=== PATIENT | female | born 2000 | race Two or more races ===

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

== ENCOUNTER 2021-06-16 09:30 | Emergency (ER) | payer MEDICAID ==
[~2021-06-16] VITALS: Ht 147.3 cm; Wt 59.0 kg
--- NOTE | 2021-06-16 09:47 | NUR ---
BIBS FOR UPPER/MID ABDOMINAL PAIN, WITH NAUSEA AND VOMITING x 4 DAYS. TO ER BED 1, HOOEKD TO MONITOR, CHANGED TO HOSP GOWN, WARM BLANKET PROVIDED, PATIENT AAO x 4. BREATHING EVENA DN UNLABORED. AWAITING MD JAEGER
--- NOTE | 2021-06-16 09:51 | NUR ---
DR RAMOS AT BEDSIDE
[2021-06-16] MEDS ORDERED: PANTOPRAZOLE 40 MG VIAL IV ONE (10:00)
[2021-06-16] MEDS ORDERED: IV NS 0.9% 1,000 ML BAG IV ONE (10:00)
[2021-06-16] MEDS ORDERED: MAG HYDROX/AL HYDROX/SIMETH 30 ML UDC PO ONE (10:00)
[2021-06-16] MEDS ORDERED: ONDANSETRON HCL/PF 4 MG/2 ML VIAL IVP ONE (10:00)
[2021-06-16] MEDS ORDERED: LIDOCAINE VISCOUS 2% UD 15 ML UDC MM ONE (10:00)
[2021-06-16] MEDS ORDERED: MORPHINE SULFATE INJ 2 MG/ML DISP.SYRIN IV ONE (10:00)
[2021-06-16] MEDS ORDERED: ONDANSETRON HCL/PF 4 MG/2 ML VIAL ONE (10:05)
[2021-06-16] MEDS ORDERED: MAG HYDROX/AL HYDROX/SIMETH 30 ML UDC ONE (10:05)
[2021-06-16] MEDS ORDERED: LIDOCAINE VISCOUS 2% UD 15 ML UDC ONE (10:05)
[2021-06-16] MEDS ORDERED: PANTOPRAZOLE 40 MG VIAL ONE (10:05)
[2021-06-16] MEDS ORDERED: MORPHINE SULFATE INJ 4 MG/ML DISP.SYRIN ONE (10:06)
[2021-06-16 10:16] LABS: BASOPHILS % (AUTO) 0.4 % (0.0-2.0); EOSINOPHILS % (AUTO) 0.9 % (0.0-6.0); HEMATOCRIT 43 % (33-45); HEMOGLOBIN 14.4 g/dL (11.5-14.8); LYMPHOCYTES % (AUTO) 18.2 % (20.0-44.0); MEAN CORPUSCULAR HGB CONC 34 g/dl (31.0-36.0); MEAN CORPUSCULAR VOLUME 90 fL (82-100); MONOCYTES % (AUTO) 8.9 % (2.0-12.0); NEUTROPHILS # (AUTO) 7.7 K/uL (1.8-8.9); NEUTROPHILS % (AUTO) 71.6 % (43.0-81.0); PLATELET COUNT (AUTO) 494 K/uL (150-450); RED BLOOD CELL COUNT(AUTO) 4.75 MIL/uL (4.0-5.2); WHITE BLOOD COUNT (AUTO) 10.8 K/uL (4.3-11.0)
--- NOTE | 2021-06-16 10:18 | NUR ---
PATIENT NOT ABLE TO PROVIDE URINE SAMPLE AT THIS TIME.
--- NOTE | 2021-06-16 10:52 | NUR ---
PATIENT STILL NOT ABLE TO PROVIDE URINE SAMPLE
[2021-06-16 10:58] LABS: CALCIUM, SERUM 9.7 mg/dL (8.5-10.1); CREATININE 0.8 mg/dL (0.6-1.3)
[2021-06-16] MEDS ORDERED: HYDROMORPHONE 1 MG/1 ML DISP.SYRIN IV ONE ×2 (11:00→13:00)
[2021-06-16] MEDS ORDERED: HYDROMORPHONE 1 MG/1 ML DISP.SYRIN ONE ×2 (11:03→12:58)
[2021-06-16 11:04] LABS: ALBUMIN 4.9 g/dL (3.4-5.0); BILIRUBIN,DIRECT 0.1 mg/dL (0.0-0.2); BILIRUBIN,TOTAL 0.7 mg/dL (0.2-1.0); TOTAL PROTEIN, SERUM 9.2 g/dL (6.4-8.2)
--- NOTE | 2021-06-16 12:02 | NUR ---
URINE SAMPLE COLLECTED AND SENT TO LAB
[2021-06-16] MEDS ORDERED: OXYC-128 PO (12:46)
[2021-06-16] MEDS ORDERED: FAMO40TA7 PO (12:46)
[2021-06-16] MEDS ORDERED: DICY10CA37 PO (12:46)
--- NOTE | 2021-06-16 13:28 | NUR ---
IV removed. Catheter intact and site benign. Pressure and 4x4 applied to site. No bleeding noted.Patient discharged to home in stable condition. Written and verbal after care instructions given. Patient verbalizes understanding of instruction.
[2021-06-16 13:42] VITALS: BP 132/85
[2021-06-17] MEDS ORDERED: ONDA4TAB5 PO (04:05)
[2021-06-17] MEDS ORDERED: METO-295 PO (04:07)
[2021-06-17] MEDS ORDERED: PANT40TA2 PO (04:08)
== END 2021-06-16 13:38 | disposition home or self-care (01) ==
LOC: ER 09:37
DX: R10.13 Epigastric pain (principal)
CPT/HCPCS: 36415; 80048; 80076; 83690; 84703; 85025; 96361; 96374; 96375; 96376; 99284; C9113; J1170 ×2; J2270; J2405; J7030

== ENCOUNTER 2021-06-16 22:29 | Emergency (ER) | payer MEDICAID ==
[~2021-06-16] VITALS: Ht 147.3 cm; Wt 57.2 kg
[~2021-06-16 22:29] MED LIST: DICY10CA37 PO; FAMO40TA7 PO; OXYC-128 PO
--- NOTE | 2021-06-16 22:53 | NUR ---
BIBSELF C/O EPIGASTRIC WITH N/V ALL DAY S/P D/C FROM ER WITH SIMILIAR COMPLAINT IN THE AM. PT STATES 8/10 EPIGASTRIC PAIN WELL NASUEA. PT BREATHING EVEN AND UNLABORED CHANGED INTO GOWN AND PLACED ON THE MONITOR AND ALL V/S STABLE. PROVIDED WITH WARM BLANKET AND CALL LIGHT WITHIN REACH.
[2021-06-16] MEDS ORDERED: IV NS 0.9% 1,000 ML BAG IV ONE (23:00)
[2021-06-16] MEDS ORDERED: LIDOCAINE VISCOUS 2% UD 15 ML UDC MM ONE (23:00)
[2021-06-16] MEDS ORDERED: MORPHINE SULFATE INJ 2 MG/ML DISP.SYRIN IV ONE (23:00)
[2021-06-16] MEDS ORDERED: MAG HYDROX/AL HYDROX/SIMETH 30 ML UDC PO ONE (23:00)
[2021-06-16] MEDS ORDERED: ONDANSETRON HCL/PF 4 MG/2 ML VIAL IV ONE (23:00)
[2021-06-16] MEDS ORDERED: MAG HYDROX/AL HYDROX/SIMETH 30 ML UDC ONE (23:19)
[2021-06-16] MEDS ORDERED: LIDOCAINE VISCOUS 2% UD 15 ML UDC ONE (23:19)
[2021-06-16] MEDS ORDERED: PANTOPRAZOLE 40 MG VIAL ONE (23:19)
[2021-06-16] MEDS ORDERED: ONDANSETRON HCL/PF 4 MG/2 ML VIAL ONE (23:19)
[2021-06-16] MEDS ORDERED: MORPHINE SULFATE INJ 4 MG/ML DISP.SYRIN ONE (23:20)
--- NOTE | 2021-06-16 23:24 | NUR ---
ULTRASOUND AT BEDSIDE.
[2021-06-16] MEDS ORDERED: PANTOPRAZOLE 40 MG VIAL IV ONE (23:30)
--- NOTE | 2021-06-16 23:30 | NUR ---
20G IV LINE INITIATED IN LAC PATENT AND INTACT. BLOOD DRAWN AND SENT TO LAB.
[2021-06-16] MEDS ORDERED: IV NS 0.9% 500 ML IV ONE (23:48)
[2021-06-16] MEDS ORDERED: CT SWABBABLE VALVE TRANS SET 1 EA INFUS.SET MC ONE (23:48)
[2021-06-16] MEDS ORDERED: IOHEXOL-300 100 ML VIAL IV ONE (23:48)
[2021-06-17] LABS: BASOPHILS % (AUTO) 0.4 % (0.0-2.0); EOSINOPHILS % (AUTO) 0.1 % (0.0-6.0); HEMATOCRIT 42 % (33-45); LYMPHOCYTES # (AUTO) 1.6 K/uL (0.8-4.8); LYMPHOCYTES % (AUTO) 14.7 % (20.0-44.0); MEAN CORPUSCULAR HGB CONC 33 g/dl (31.0-36.0); MEAN CORPUSCULAR VOLUME 91 fL (82-100); MONOCYTES % (AUTO) 8.8 % (2.0-12.0); NEUTROPHILS # (AUTO) 8.4 K/uL (1.8-8.9); PLATELET COUNT (AUTO) 463 K/uL (150-450); RED BLOOD CELL COUNT(AUTO) 4.68 MIL/uL (4.0-5.2); WHITE BLOOD COUNT (AUTO) 11.1 K/uL (4.3-11.0)
[2021-06-17] MEDS ORDERED: ONDANSETRON HCL/PF 4 MG/2 ML VIAL ONE (00:08)
[2021-06-17] MEDS ORDERED: MORPHINE SULFATE INJ 4 MG/ML DISP.SYRIN ONE ×2 (00:09→00:56)
--- NOTE | 2021-06-17 00:16 | NUR ---
PT BEING TRANSPORTED TO [facility] VIA [facility]
[2021-06-17 00:19] LABS: CALCIUM, SERUM 8.9 mg/dL (8.5-10.1); CREATININE 0.8 mg/dL (0.6-1.3); POTASSIUM 2.9 mmol/L (3.5-5.1)
[2021-06-17 00:25] LABS: BILIRUBIN,DIRECT 0.2 mg/dL (0.0-0.2); BILIRUBIN,TOTAL 0.8 mg/dL (0.2-1.0); TOTAL PROTEIN, SERUM 9.2 g/dL (6.4-8.2)
[2021-06-17] MEDS ORDERED: MORPHINE SULFATE INJ 2 MG/ML DISP.SYRIN IV ONE ×2 (00:30→01:00)
[2021-06-17] MEDS ORDERED: ONDANSETRON HCL/PF - ER 4 MG/2 ML VIAL IV ONE (00:30)
[2021-06-17] MEDS ORDERED: METOCLOPRAMIDE HCL 10 MG/2 ML VIAL ONE (00:57)
[2021-06-17] MEDS ORDERED: METOCLOPRAMIDE HCL 10 MG/2 ML VIAL IV ONE (01:00)
--- NOTE | 2021-06-17 02:25 | NUR ---
SPOKE WITH LEIGHA MELGOZA SHEEP KILLER FOR CLINICAL INFORMATION. WILL CALL BACK FOR TRANSFER
--- NOTE | 2021-06-17 02:34 | NUR ---
Travis meeks in [facility] - 06/17/21 at 0324 by PRECIOUS LEIGHA MELGOZA FAN RUNNER - [phone]
--- NOTE | 2021-06-17 02:34 | NUR ---
RHONA, LEIGHA CONCRETE SMOOTHER - [phone]
--- NOTE | 2021-06-17 02:34 | NUR ---
FAX COVID RESULT TO [phone]
[2021-06-17] MEDS ORDERED: HALOPERIDOL LACTATE INJ 5 MG/ML VIAL ONE (02:36)
--- NOTE | 2021-06-17 02:40 | NUR ---
DR. OLIVAS SPOKE WITH DR. SOLITARIO. PT IS GOING TO [facility]. WILL CALL BACK FOR ROOM ASSIGNMENT
[2021-06-17] MEDS ORDERED: HALOPERIDOL LACTATE INJ 5 MG/ML VIAL IM ONE (03:00)
[2021-06-17] MEDS ORDERED: ONDA4TAB5 PO (04:05)
[2021-06-17] MEDS ORDERED: METO-295 PO (04:07)
[2021-06-17] MEDS ORDERED: PANT40TA2 PO (04:08)
--- NOTE | 2021-06-17 04:56 | NUR ---
Patient does not wish to proceed with medical care recommended by Dr. Alfred. Patient given information related to possible complications, up to and including , which could occur as a result of leaving the hospital at this time. Patient verbalizes understanding of risks involved due to leaving against medical advice. Patient has signed AMA form. IV line discontinued and patient ambulated without difficulty and was picked up by family.
[2021-06-17 04:58] VITALS: BP 117/62
== END 2021-06-17 04:59 | disposition left against medical advice (07) ==
LOC: ER 22:32
DX: R10.13 Epigastric pain (principal); E87.6 Hypokalemia; E87.8 Other disorders of electrolyte and fluid balance, not elsewhere classified; Z20.822 Contact with and (suspected) exposure to COVID-19; Z53.29 Procedure and treatment not carried out because of patient's decision for other reasons
CPT/HCPCS: 36415; 74177; 76705; 80048; 80076; 83690; 85025; 87426; 96361; 96374; 96375 ×2; 96376; 99285; C9113; C9803; J1630; J2270 ×3; J2405 ×2; J2765; J7030; J7050; Q9967

== ENCOUNTER 2021-06-18 09:54 | Emergency (ER) | payer MEDICAID ==
[~2021-06-18] VITALS: Ht 147.3 cm; Wt 75.3 kg
[~2021-06-18 09:54] MED LIST changes: +METO-295 PO; +ONDA4TAB5 PO; +PANT40TA2 PO
--- NOTE | 2021-06-18 09:54 | NUR ---
PT BIB SELF C/O ABDOMINAL PAIN AND VOMITING FOR 4 DAYS. PT IS AAOX4, NOT IN RESPIRATORY DISTRESS, V/S STABLE, KEPT RESTED AND COMFORTABLE. WILL CONTINUE TO MONITOR.
--- NOTE | 2021-06-18 09:56 | NUR ---
TO ER BED 12, BIB SELF C/O ABDOMINAL PAIN AND VOMITING FOR 4 DAYS. AAOX4, HX OF GASTRITIS.
[2021-06-18] MEDS ORDERED: ONDANSETRON HCL/PF 4 MG/2 ML VIAL IVP ONE (10:30)
[2021-06-18] MEDS ORDERED: IV NS 0.9% 1,000 ML BAG IV ONE (10:30)
[2021-06-18] MEDS ORDERED: HALOPERIDOL LACTATE INJ 5 MG/ML VIAL IM ONE (10:30)
[2021-06-18] MEDS ORDERED: HALOPERIDOL LACTATE INJ 5 MG/ML VIAL ONE (10:30)
[2021-06-18] MEDS ORDERED: ONDANSETRON HCL/PF 4 MG/2 ML VIAL ONE (10:31)
[2021-06-18 10:34] LABS: BASOPHILS % (AUTO) 0.4 % (0.0-2.0); EOSINOPHILS % (AUTO) 0.1 % (0.0-6.0); HEMATOCRIT 40 % (33-45); HEMOGLOBIN 13.3 g/dL (11.5-14.8); LYMPHOCYTES # (AUTO) 1.7 K/uL (0.8-4.8); LYMPHOCYTES % (AUTO) 17.6 % (20.0-44.0); MEAN CORPUSCULAR HGB CONC 33 g/dl (31.0-36.0); MEAN CORPUSCULAR VOLUME 91 fL (82-100); MONOCYTES # (AUTO) 0.8 K/uL (0.1-1.30); MONOCYTES % (AUTO) 7.7 % (2.0-12.0); NEUTROPHILS # (AUTO) 7.4 K/uL (1.8-8.9); NEUTROPHILS % (AUTO) 74.2 % (43.0-81.0); PLATELET COUNT (AUTO) 452 K/uL (150-450); RED BLOOD CELL COUNT(AUTO) 4.35 MIL/uL (4.0-5.2); WHITE BLOOD COUNT (AUTO) 9.9 K/uL (4.3-11.0)
[2021-06-18 10:55] LABS: ALBUMIN 4.5 g/dL (3.4-5.0); BILIRUBIN,DIRECT 0.2 mg/dL (0.0-0.2); BILIRUBIN,TOTAL 0.7 mg/dL (0.2-1.0); CALCIUM, SERUM 8.7 mg/dL (8.5-10.1); CREATININE 0.8 mg/dL (0.6-1.3); POTASSIUM 2.9 mmol/L (3.5-5.1); TOTAL PROTEIN, SERUM 8.4 g/dL (6.4-8.2)
[2021-06-18] MEDS ORDERED: IV PREMIX D5 NS + KCL 1,000 ML IV ONE (11:30)
[2021-06-18] MEDS ORDERED: POTASSIUM CHLORIDE 20 MEQ TAB.PRT.SR PO ONE (11:30)
[2021-06-18 12:17] LABS: BILIRUBIN,URINE SMALL (NEGATIVE); COLOR,URINE DARK YELLOW (YELLOW); LEUKOCYTE ESTERASE ,URINE NEGATIVE (NEGATIVE); NITRITE, URINE NEGATIVE (NEGATIVE); PH,URINE 7.5 (5.0-8.0); PROTEIN,URINE NEGATIVE (NEGATIVE); UGLUCOSE NEGATIVE (NEGATIVE)
--- NOTE | 2021-06-18 12:20 | NUR ---
IV removed. Catheter intact and site benign. Pressure and 4x4 applied to site. No bleeding noted.
--- NOTE | 2021-06-18 12:25 | NUR ---
Patient does not wish to proceed with medical care recommended by Dr. HAWKINS. Patient given information related to possible complications, up to and including , which could occur as a result of leaving the hospital at this time. Patient verbalizes understanding of risks involved due to leaving against medical advice. Patient has signed AMA form.
[2021-06-18 12:26] VITALS: BP 127/71
[2021-06-18 12:30] LABS: BACTERIA,URINE Few /HPF (None Seen); RBC,URINE 0-3 /HPF (0-2); SQUAMOUS EPITHELIAL CELL,UR Moderate /HPF (None Seen); URINE AMORPHOUS PHOSPHATES Moderate /HPF (None Seen); WBC,URINE 0-2 /HPF (0-3)
== END 2021-06-18 12:26 | disposition left against medical advice (07) ==
LOC: ER 09:57
DX: R10.13 Epigastric pain (principal); E87.6 Hypokalemia; Z79.899 Other long term (current) drug therapy
CPT/HCPCS: 36415; 80048; 80076; 81001; 84703; 85025; 96361; 96372; 96374; 99284; J1630; J2405; J3490; J7030

== ENCOUNTER 2022-01-31 04:17 | Emergency (ER) | payer MEDICAID ==
[~2022-01-31] VITALS: Ht 147.3 cm; Wt 68.0 kg
--- NOTE | 2022-01-31 04:20 | NUR ---
BIBS FOR C/O UPPER ABD PAIN, N/V. PT A/OX4. TOLERATING R/A WELL WITH NO RESP DISRESS. AMBULATORY WITH STEADY GAIT. SAFETY MEASURES IN PLACE. AWAITING MD JAEGER
--- NOTE | 2022-01-31 04:33 | NUR ---
DR. DEVIN CROWLEY AT PT'S BEDSIDE
[2022-01-31] MEDS ORDERED: PANTOPRAZOLE 40 MG VIAL ONE (04:39)
[2022-01-31] MEDS ORDERED: DICYCLOMINE HCL INJ 20 MG/2 ML AMPUL IM ONE ×2 (04:39→05:00)
[2022-01-31] MEDS ORDERED: ONDANSETRON HCL/PF 4 MG/2 ML VIAL ONE (04:39)
--- NOTE | 2022-01-31 04:40 | NUR ---
IV ESTABLISHED RAC #18G S/L; BLOOD COLLECTED AND SENT TO LAB
[2022-01-31 04:57] LABS: BASOPHILS % (AUTO) 0.1 % (0.0-2.0); EOSINOPHILS % (AUTO) 0.9 % (0.0-6.0); HEMATOCRIT 43 % (33-45); HEMOGLOBIN 14.5 g/dL (11.5-14.8); LYMPHOCYTES # (AUTO) 1.5 K/uL (0.8-4.8); LYMPHOCYTES % (AUTO) 11.7 % (20.0-44.0); MEAN CORPUSCULAR HGB CONC 34 g/dl (31.0-36.0); MEAN CORPUSCULAR VOLUME 87 fL (82-100); MONOCYTES # (AUTO) 0.7 K/uL (0.1-1.30); MONOCYTES % (AUTO) 5.7 % (2.0-12.0); NEUTROPHILS # (AUTO) 10.2 K/uL (1.8-8.9); NEUTROPHILS % (AUTO) 81.6 % (43.0-81.0); PLATELET COUNT (AUTO) 451 K/uL (150-450); RED BLOOD CELL COUNT(AUTO) 4.96 MIL/uL (4.0-5.2); WHITE BLOOD COUNT (AUTO) 12.5 K/uL (4.3-11.0)
[2022-01-31] MEDS ORDERED: ONDANSETRON HCL/PF 4 MG/2 ML VIAL IVP ONE (05:00)
[2022-01-31] MEDS ORDERED: IV NS 0.9% 1,000 ML BAG IV ONE (05:00)
[2022-01-31] MEDS ORDERED: PANTOPRAZOLE 40 MG VIAL IV ONE (05:00)
[2022-01-31 05:09] LABS: ALBUMIN 5.2 g/dL (3.4-5.0); BILIRUBIN,DIRECT 0.1 mg/dL (0.0-0.2); BILIRUBIN,TOTAL 0.6 mg/dL (0.2-1.0); CALCIUM, SERUM 9.7 mg/dL (8.5-10.1); CREATININE 1.1 mg/dL (0.6-1.3); TOTAL PROTEIN, SERUM 9.9 g/dL (6.4-8.2)
[2022-01-31 05:13] LABS: POTASSIUM 2.8 mmol/L (3.5-5.1)
--- NOTE | 2022-01-31 05:13 | NUR ---
CRITICAL: POTASSIUM 2.8. MADE AWARE
[2022-01-31] MEDS ORDERED: POTASSIUM CL. PREMIX PERIPHER. 50 ML ONE (05:16)
--- NOTE | 2022-01-31 05:22 | NUR ---
PT REFUSED POTASSIUM VIA IV PUMP, MADE AWARE.
[2022-01-31] MEDS ORDERED: POTASSIUM CHLORIDE 20 MEQ TAB.PRT.SR PO ONE ×3 (05:24→08:30)
[2022-01-31] MEDS ORDERED: POTASSIUM CHLORIDE 10 MEQ/50 ML PREMIXED IVPB FOR PERIPHERAL LINE IV ONE (05:30)
--- NOTE | 2022-01-31 05:47 | NUR ---
PT RETURNED TO ER BED [address]
--- NOTE | 2022-01-31 08:28 | NUR ---
PT REFUSED PO POTASSIUM, WAS EXPLAINED THE RISKS OF NOT TAKING HER POTASSIUM PILLS. INSTRUCTED TO EAT MORE BANANAS AND GREEN LEAFT VEGETABLES TO INCREASE HER POTASSIUM LEVELS AT HOME.
[2022-01-31 08:30] VITALS: BP 123/94
--- NOTE | 2022-02-26 14:44 | NUR ---
addendum for 01/31/22 IV fluids: End time 0548, RAC g18, tolerated well.
== END 2022-01-31 08:30 | disposition home or self-care (01) ==
LOC: ER 04:20
DX: R10.13 Epigastric pain (principal); E87.6 Hypokalemia; Z79.899 Other long term (current) drug therapy
CPT/HCPCS: 99285; 74176; 96374; 96361; 96375; 85025; 80048; 83690; 80076; 36415; 96372; J2405; J7030; C9113; J0500; J3480

== ENCOUNTER 2023-08-21 22:37 | Emergency (ER) | payer MEDICAID ==
[~2023-08-21] VITALS: Ht 147.3 cm; Wt 63.5 kg
[2023-08-21 23:57] LABS: APPEARANCE,URINE CLEAR (CLEAR); BILIRUBIN,URINE NEGATIVE (NEGATIVE); BLOOD, URINE TRACE-INTA Ery/uL (NEGATIVE); COLOR,URINE YELLOW (YELLOW); KETONES,URINE NEGATIVE (NEGATIVE); LEUKOCYTE ESTERASE ,URINE NEGATIVE (NEGATIVE); NITRITE, URINE NEGATIVE (NEGATIVE); PH,URINE 5.5 (5.0-8.0); PROTEIN,URINE 1+ mg/dl (NEGATIVE); UGLUCOSE NEGATIVE (NEGATIVE); UROBILINOGEN,URINE 0.2 EU/dL (0.2)
[2023-08-21 23:58] LABS: ADD URINE CULTURE NO; BACTERIA,URINE None seen /HPF (None Seen); PREGNANCY TEST URINE QUAL NEGATIVE (NEGATIVE); SQUAMOUS EPITHELIAL CELL,UR Rare /HPF (None Seen); WBC,URINE 0-2 /HPF (0-3)
[2023-08-21 23:59] LABS: BASOPHILS % (AUTO) 0.4 % (0.0-2.0); EOSINOPHILS # (AUTO) 0.1 K/uL (0.0-0.7); EOSINOPHILS % (AUTO) 0.7 % (0.0-6.0); HEMATOCRIT 37 % (33-45); HEMOGLOBIN 12.4 g/dL (11.5-14.8); LYMPHOCYTES # (AUTO) 1.9 K/uL (0.8-4.8); MEAN CORPUSCULAR HEMOGLOBIN 32 PG (26.0-33.0); MEAN CORPUSCULAR HGB CONC 33 g/dl (31.0-36.0); MEAN CORPUSCULAR VOLUME 95 fL (82-100); MONOCYTES # (AUTO) 0.7 K/uL (0.1-1.30); MONOCYTES % (AUTO) 7.8 % (2.0-12.0); NEUTROPHILS # (AUTO) 6.6 K/uL (1.8-8.9); NEUTROPHILS % (AUTO) 71.1 % (43.0-81.0); PLATELET COUNT (AUTO) 385 K/uL (150-450); RED BLOOD CELL COUNT(AUTO) 3.94 MIL/uL (4.0-5.2); RED CELL DISTRIBUTION WIDTH 16.2 % (11.5-15.0); WHITE BLOOD COUNT (AUTO) 9.2 K/uL (4.3-11.0)
[2023-08-22] LABS: CALCIUM, SERUM 8.8 mg/dL (8.5-10.1); CARBON DIOXIDE 25 mmol/L (21-32); CHLORIDE 106 mmol/L (98-107); CREATININE 0.6 mg/dL (0.6-1.3); GLUCOSE 100 mg/dL (74-106); POTASSIUM 3.8 mmol/L (3.5-5.1); SODIUM SERUM 139 mmol/L (136-145); UREA NITROGEN, BLOOD 9 mg/dL (7-18)
[2023-08-22 00:05] LABS: AMPHETAMINE, URINE NEGATIVE (NEGATIVE); BARBITURATE, URINE NEGATIVE (NEGATIVE); BENZODIAZEPINE, URINE NEGATIVE (NEGATIVE); CANNABINOID, URINE NEGATIVE (NEGATIVE); COCCAINE, URINE NEGATIVE (NEGATIVE); OPIATE, URINE NEGATIVE (NEGATIVE); PHENCYCLIDINE SCREEN,URINE NEGATIVE (NEGATIVE)
[2023-08-22 00:06] LABS: ACETAMINOPHEN <10 ug/ml (10-30); ALANINE AMINOTRANSFERASE 20 U/L (12-78); ALBUMIN 3.6 g/dL (3.4-5.0); ALCOHOL, BLOOD 210 mg/dL (0-10); ALKALINE PHOSPHATASE 80 U/L (46-116); ASPARTATE AMINOTRANSFERASE 16 U/L (15-37); BILIRUBIN,TOTAL 0.2 mg/dL (0.2-1.0); SALICYLATE 1.3 mg/dL (2.8-20.0); TOTAL PROTEIN, SERUM 7.4 g/dL (6.4-8.2)
[2023-08-22] MEDS: IV NS 0.9% 1,000 ML IV ONE (01:27)
[2023-08-22] MEDS ORDERED: HALOPERIDOL LACTATE INJ 5 MG/ML VIAL ONE (01:44)
[2023-08-22] MEDS ORDERED: diphenhydrAMINE HCL 50 MG/ML VIAL ONE (01:48)
[2023-08-22] MEDS ORDERED: LORAZEPAM INJ 2 MG/ML VIAL ONE (01:48)
[2023-08-22] MEDS: LORAZEPAM INJ 2 MG/ML VIAL IV ONE (01:49)
[2023-08-22] MEDS: HALOPERIDOL LACTATE INJ 5 MG/ML VIAL IM ONE ×3 (01:49→07:10)
[2023-08-22] MEDS: diphenhydrAMINE HCL 50 MG/ML VIAL IV ONE (01:49)
[2023-08-22] MEDS: LORAZEPAM INJ 2 MG/ML VIAL IM ONE (07:10)
[2023-08-22 12:14] VITALS: BP 116/74; TEMP 98.9; O2SAT 98
== END 2023-08-22 12:16 | disposition home or self-care (01) ==
LOC: ER 22:43
DX: R45.851 Suicidal ideations (principal); Z79.899 Other long term (current) drug therapy; Z20.822 Contact with and (suspected) exposure to COVID-19
CPT/HCPCS: 99285; 85025; 84703; 81001; 36415; 80053; 87426; 80143; 80320; 80307; 96372; 96374; 96361; 96375; J2060; J1200; J1630; J7030; G0480